=== PATIENT | female | born 1995 | race Caucasian/White ===

== ENCOUNTER 2016-09-10 07:17 | Emergency (ER) | payer OTHER ==
[2016-09-10 07:28] VITALS: BP 138/74
--- NOTE | 2016-09-10 07:50 | UC ---
Abdominal Pain Female HPI - HPI Summary HPI Summary: She states for the past year she has has been seeing GI regularly for intermittent cramping, sweats, distension. she has had issues with lack of BM and last BM this episode was 9 days ago. she has had some watery stools in the meantime. no wt loss, bleeding or fever. She does at times have night symptoms. she has been trying lynzess and mag citrate this past week without much help. she has not had much passage of sania. Currently no vomiting or nausea, bloating , pain. no complaints. - History of Current Complaint Chief Complaint: UCAbdominalPain Stated Complaint: CONSTIPATION Time Seen by Provider: 09/10/16 07:30 Hx Obtained From: Patient Hx Last Menstrual Period: mirena, does not get period ?: No Onset/Duration: Gradual Onset Severity Currently: None Location: Discrete At: LUQ Radiates: No Character: Cramping Aggravating Factor(s): Food Alleviating Factor(s): Nothing Associated Signs and Symptoms: Positive: Constipation, Decreased Appetite, Nausea - currently this morning she has no worrisome symptoms.. Negative: Fever , Cough, Chest Pain, Dizzy, Back Pain, Blood in Stool, Urinary Symptoms, Vaginal Bleeding, Vaginal Discharge, Vomiting, Diarrhea Allergies/Adverse Reactions: Allergies Allergy/AdvReac Type Severity Reaction Status Date / Time Amoxicillin Allergy Hives Verified 09/10/16 07:28 Home Medications: Home Medications Lactulose* 30 ml PO DAILY 09/10/16 [History Confirmed 09/10/16] Linaclotide (NF) [Linzess (NF)] 290 mcg PO DAILY 09/10/16 [History Confirmed ] PMH/Surg Hx/FS Hx/Imm Hx Endocrine History Of: Denies: Diabetes Cardiovascular History Of: Denies: Hypertension, Pacemaker/ICD GI/ History Of: Denies: Renal Disease - Surgical History Surgical History: Yes Surgery Procedure, Year, and Place: 2007 APPENDECTOMY [place]. 2011 [facility] - Family History Known Family History: Positive: None - no related gi disease. - Social History Occupation: Employed Full-time Alcohol Use: None Substance Use Type: None Smoking Status (MU): Never Smoked Tobacco Have You Smoked in the Last Year: No Review of Systems All Other Systems Reviewed And Are Negative: Yes Physical Exam Triage Information Reviewed: Yes Appearance: Well-Appearing - she is currently working here and is walking about easily without any signs of distress. Currently smiling at work station., No Pain Distress, Well-Nourished Vital Signs: Initial Vital Signs Temp 97.9 F 09/10/16 07:21 Pulse 67 09/10/16 07:21 Resp 15 09/10/16 07:21 BP 138/74 09/10/16 07:21 Pulse Ox 98 09/10/16 07:21 Vital Signs Reviewed: Yes Eyes: Positive: Conjunctiva Clear. Negative: Conjunctiva Inflamed ENT Exam: Normal Neck exam: Normal Neck: Positive: Supple, Nontender, No Lymphadenopathy Respiratory Exam: Normal Respiratory: Positive: Chest non-tender, Lungs clear, Normal breath sounds, No respiratory distress. Negative: No accessory muscle use, Respiratory distress, Decreased breath sounds, Accessory muscle use, Crackles, Rhonchi, Stridor, Wheezing Cardiovascular Exam: Normal Cardiovascular: Positive: RRR, No Murmur, Pulses Normal, Brisk Capillary Refill. Negative: Tachycardia Abdomen Description: Positive: No Organomegaly, Soft - she has no distension. There is tenderness LUQ and LLQ with deep palpation but no guarding or rebound.. Negative: CVA Tenderness (R), CVA Tenderness (L), Distended, Guarding , Peritoneal Signs Bowel Sounds: Positive: Present Musculoskeletal Exam: Normal Musculoskeletal: Positive: Strength Intact, ROM Intact, No Edema Neurological Exam: Normal Neurological: Positive: Alert, Muscle Tone Normal. Negative: Fatigued, Lethargic, Unresponsive Psychological Exam: Normal Skin Exam: Normal Skin: Negative: rashes Abd Pain Female Course/Dx - Course Course Of Treatment: She has been seeing GI. She is scheduled for colonoscvopy. her next appt with gi is next week. currently she has no worrisome symptoms and her exam is benign. She has had blood work with GI which at least included thyroid studies. differential includes functional constipation, illeus, inflammatory bowel. She will return for any worsening. - Differential Dx/Diagnosis Differential Diagnosis: Abdominal Aortic Aneurysm, ACS, Bowel Obstruction, Constipation, Diverticulitis, Ectopic , Irritable Bowel Syndrome, Ovarian Cyst, Pelvic Inflammatory Disease, Peptic Ulcer Disease, , Urinary Tract Infection Provider Diagnoses: abd cramping. Discharge - Discharge Plan Condition: Good Disposition: HOME Patient Education Materials: Constipation (ED), High Fiber Diet (ED) Additional Instructions: continue to follow up with GI as we discussed. REturn for any worsening or new symptoms.
--- NOTE | 2016-09-10 08:03 | RAD ---
HISTORY: No bowel movement for 9 days COMPARISONS: October 17, 2015 VIEWS: Frontal views of the abdomen. FINDINGS: BOWEL: There is a nonspecific bowel gas pattern, with nondilated small bowel gas noted. There is a moderate amount of stool within the colon. CALCULI: There are no abnormal calculi. BONES AND SOFT TISSUES: There are no osseous abnormalities. OTHER FINDINGS: The lung bases are clear. There is no subphrenic gas. An IUD is noted. IMPRESSION: NONSPECIFIC BOWEL GAS PATTERN.
== END 2016-09-10 08:11 | disposition home or self-care (01) ==
LOC: UCCORT 07:17
DX: R10.12 Left upper quadrant pain (principal); R14.0 Abdominal distension (gaseous); Z88.1 Allergy status to other antibiotic agents; Z32.02 Encounter for pregnancy test, result negative
CPT/HCPCS: 74000; 81003; 84702; 99211; G0463

== ENCOUNTER 2017-10-07 21:22 | Emergency (ER) | payer BC ==
[2017-10-07 22:32] LABS: ABS Basophils 0.1 10^3/ul (0-0.2); ABS Eosinophils 0.1 10^3/ul (0-0.6); ABS Lymphocytes 2.4 10^3/ul (1.0-4.8); ABS Monocytes 0.7 10^3/ul (0-0.8); ABS Neutrophils 9.9 10^3/ul (1.5-7.7); ABS Nucleated RBC 0 10^3/ul; Eosinophil % 0.7 % (0-6); Hematocrit 38 % (35-47); Hemoglobin 12.5 g/dl (12.0-16.0); Mean Corpuscular HGB Conc 33 g/dl (31-36); Mean Corpuscular Hemoglobin 27 pg (27-31); Mean Corpuscular Volume 82 fL (80-97); Mean Platelet Volume 7.1 um3 (7.4-10.4); Nucleated Red Blood Cells % 0; Platelet Count 289 10^3/ul (150-450); Red Blood Count 4.59 10^6/ul (4.0-5.4); Red Cell Distribution Width 13 % (10.5-15); White Blood Count 13.2 10^3/ul (3.5-10.8)
[2017-10-07 22:53] LABS: EGFR Non-African American 110.1 (>60)
[2017-10-07] MEDS ORDERED: Lidocaine 2% VISCOUS* 15 ML UDC PO ONE (22:53)
[2017-10-07] MEDS ORDERED: Famotidine TAB* 20 MG PO ONE (22:53)
[2017-10-07] MEDS ORDERED: Al Hydrox/Mg Hydrox/Simet LIQ* 30 ML UDC PO ONE (22:53)
[2017-10-07 23:20] LABS: Urine Appearance Clear; Urine Blood Negative (Negative); Urine Color Yellow; Urine Ketones Negative (Negative); Urine Protein Negative (Negative); Urine Specific Gravity 1.013 (1.010-1.030); Urine Urobilinogen Negative (Negative)
--- NOTE | 2017-10-07 23:56 | ED ---
Nikhil Carter Jennifer, scribed for Jarek May MD on 10/07/17 at 2242 . Abdominal Pain/Female - HPI Summary HPI Summary: The patient is a 21 year old female who presents with sudden onset left-sided abdominal pain and vomiting today. She describes it as the most excruciating stomach pain and that it was like a twisting knife in her stomach. Patient adds she felt like she was about to pass out when she began vomiting. Patient denies fever, hematuria, dysuria, urgency, and frequency. Her abdominal pain is still present in the ED. - History of Current Complaint Chief Complaint: EDAbdPain Stated Complaint: SYNCOPE/ABD PAIN Time Seen by Provider: 10/07/17 22:33 Hx Obtained From: Patient Hx Last Menstrual Period: mirena, does not get period ?: No Onset/Duration: Sudden Onset, Lasting Days - couple days, Still Present, Worse Since - this morning Timing: Constant Severity Initially: Severe Severity Currently: Moderate Pain Intensity: 6 Pain Scale Used: 0-10 Numeric Location: Discrete At: LUQ, Discrete At: LLQ Radiates: No Character: Sharp - sharp/stabbing Aggravating Factor(s): Nothing Alleviating Factor(s): Nothing Associated Signs and Symptoms: Positive: Other: - abdominal pain, vomiting. NEGATIVE: fever, hamrutia, dysuria, urgency, frequency Allergies/Adverse Reactions: Allergies Allergy/AdvReac Type Severity Reaction Status Date / Time amoxicillin Allergy Hives Verified 10/07/17 21:37 Home Medications: Home Medications Miralax 17 gm PO DAILY 10/07/17 [History Confirmed 10/07/17] PMH/Surg Hx/FS Hx/Imm Hx Endocrine/Hematology History: Denies: Hx Diabetes Cardiovascular History: Denies: Hx Hypertension, Hx Pacemaker/ICD GI History: Reports: Hx Irritable Bowel - Hx IBSC History: Denies: Hx Renal Disease Sensory History: Reports: Hx Contacts or Glasses - WILL WEAR GLASSES DAY OF SURGERY Denies: Hx Hearing Aid Opthamlomology History: Reports: Hx Contacts or Glasses - WILL WEAR GLASSES DAY OF SURGERY Psychiatric History: Denies: Hx Panic Disorder - Surgical History Surgery Procedure, Year, and Place: 2007 APPENDECTOMY [place]. 2011 [facility] Hx Anesthesia Reactions: No Infectious Disease History: No Infectious Disease History: Denies: Traveled Outside the [place] in Last 30 Days - Family History Known Family History: Positive: Other - no related gi disease. Negative: Hypertension, Diabetes - Social History Alcohol Use: None Hx Substance Use: No Substance Use Type: Reports: None Hx Tobacco Use: No Smoking Status (MU): Never Smoked Tobacco Have You Smoked in the Last Year: No Review of Systems Negative: Fever Positive: Abdominal Pain, Vomiting Negative: dysuria, frequency, hematuria, urgency All Other Systems Reviewed And Are Negative: Yes Physical Exam - Summary Physical Exam Summary: Appearance: Well appearing, no pain distress Skin: warm, dry, reflects adequate perfusion Head/face: normal Eyes: EOMI, MEGAN ENT: normal Neck: supple, non-tender Respiratory: CTA, breath sounds present Cardiovascular: RRR, pulses symmetrical Abdomen: mild tenderness in LUQ, soft, no rebounding or guarding Bowel Sounds: present Musculoskeletal: normal, strength/ROM intact Neuro: normal, sensory motor intact, A&Ox3 Triage Information Reviewed: Yes Vital Signs On Initial Exam: Initial Vitals Temp Pulse Resp BP Pulse Ox 96.7 F 90 16 146/99 99 10/07/17 21:35 10/07/17 21:35 10/07/17 21:35 10/07/17 21:35 10/07/17 21:35 Vital Signs Reviewed: Yes Diagnostics - Vital Signs Vital Signs Temp Pulse Resp BP Pulse Ox 10/07/17 21:47 105 22 100 10/07/17 21:45 103 17 132/87 99 10/07/17 21:35 96.7 F 90 16 146/99 99 - Laboratory Lab Results: Lab Results 10/07/17 Range/Units 22:24 WBC 13.2 H (3.5-10.8) 10^3/ul RBC 4.59 (4.0-5.4) 10^6/ul Hgb 12.5 (12.0-16.0) g/dl Hct 38 (35-47) % MCV 82 (80-97) fL MCH 27 (27-31) pg MCHC 33 (31-36) g/dl RDW 13 (10.5-15) % Plt Count 289 (150-450) 10^3/ul MPV 7.1 L (7.4-10.4) um3 Neut % (Auto) 75.1 (38-83) % Lymph % (Auto) 18.0 L (25-47) % Towner % (Auto) 5.7 (0-7) % Eos % (Auto) 0.7 (0-6) % Baso % (Auto) 0.5 (0-2) % Absolute Neuts (auto) 9.9 H (1.5-7.7) 10^3/ul Absolute Lymphs (auto) 2.4 (1.0-4.8) 10^3/ul Absolute Monos (auto) 0.7 (0-0.8) 10^3/ul Absolute Eos (auto) 0.1 (0-0.6) 10^3/ul Absolute Basos (auto) 0.1 (0-0.2) 10^3/ul Absolute Nucleated RBC 0 10^3/ul Nucleated RBC % 0 Result Diagrams: 10/07/17 22:24 10/07/17 22:24 Lab Statement: Any lab studies that have been ordered have been reviewed, and results considered in the medical decision making process. - Radiology Abdominal XR Xray Interpretation: No Acute Changes - Shows non-obstructive bowel pattern. Radiology Interpretation Completed By: ED Physician Re-Evaluation - Re-Evaluation First Eval Re-Evaluation Time: 23:31 Change: Improved Comment: Patient reports feeling much better. Abdominal Pain Fem Course/Dx - Course Course Of Treatment: Patient with a history of irritable bowel constipation type with left upper quadrant pain that is fairly constant in nature. Laboratories are nonrevealing. X-ray shows nonobstructive pattern. She had full relief of symptoms after GI treatments with Maalox, viscous lidocaine and Pepcid. I will continue similar treatment along with PPI outpatient. She'll follow-up with her GI doctor. - Diagnoses Differential Diagnosis: Positive: Constipation, Diverticulitis, Ectopic , Irritable Bowel Syndrome, Ovarian Cyst, Pancreatitis, Peptic Ulcer Disease, Other - Gastritis Provider Diagnoses: Gastritis, LUQ abdominal pain Discharge - Sign-Out/Discharge Documenting (check all that apply): Discharge/Admit/Transfer - Discharge Plan Condition: Good Disposition: HOME Prescriptions: Famotidine TAB* [Pepcid 20 MG TAB*] 20 mg PO BID #10 tab Omeprazole CAP* [Prilosec CAP* 20 MG] 20 mg PO BEDTIME #30 cap. Sucralfate [Carafate] 1 gm PO QID #40 tablet Patient Education Materials: Gastritis (ED), Abdominal Pain (ED) Forms: *Work Release Referrals: Julieth Mackenzie MD [Primary Care Provider] - Additional Instructions: Follow-up with Dr. Goss at [place]. Avoid anti-inflammatory medications alcohol and caffeine. Return if worse, new symptoms or other concerns. - Billing Disposition and Condition Condition: STABLE Disposition: HOME The documentation as recorded by the Nikhil johnson Jennifer accurately reflects the service I personally performed and the decisions made by , Jarek May MD.
[2017-10-08 00:08] VITALS: BP 116/74
--- NOTE | 2017-10-08 07:41 | RAD ---
HISTORY: Abdominal pain, rule out obstruction COMPARISONS: September 10, 2016 VIEWS: Frontal supine and upright views of the abdomen. FINDINGS: BOWEL: There is a nonobstructive bowel gas pattern. There is a large amount of stool within the mid and distal colon. CALCULI: There are no abnormal calculi. BONES AND SOFT TISSUES: There are no osseous abnormalities. An IUD is noted. OTHER FINDINGS: The lung bases are clear. There is no subphrenic gas. IMPRESSION: NONOBSTRUCTIVE BOWEL GAS PATTERN.
== END 2017-10-08 00:07 | disposition home or self-care (01) ==
LOC: ED 21:22
DX: K29.70 Gastritis, unspecified, without bleeding (principal); R10.12 Left upper quadrant pain; R11.10 Vomiting, unspecified
CPT/HCPCS: 36415; 74019; 80053; 81003; 83605; 83690; 84702; 85025; 86140; 99283; A9270-GY

== ENCOUNTER → 2018-01-29 06:44 | Day surgery (SDC) | payer BC ==
[~2018-01-29 06:44] MED LIST: Acetaminophen TAB* 325 MG ONE; Acetaminophen TAB* 325 MG PO ONE; Buffered Lidocaine 0.9% SYRIN* 5 ML/SYR SYRINGE INTRADERM ONE; Dexamethasone IV* 4 MG/ML 1 ML (4 MG) ONE; DiMENhydriNATE IV* 50 MG/ML VIAL IV PUSH PRN; DiMENhydriNATE IV* 50 MG/ML VIAL ONE; Famotidine IV* 10 MG/ML 2 ML (20 mg) ONE; HYDROcodone/ACETAMIN 5-325 MG* 1 TAB PO PRN; Ketorolac INJ* 30 MG/ML 1 ML VIAL ONE; Lidocaine 2% PF * 5 ML VIAL ONE; Midazolam* 1 MG/ML 2 ML VIAL (2 MG) ONE; Nalbuphine* 10 MG/ML 1 ML VIAL IV PRN; Naloxone* 0.4 MG/ML 1 ML VIAL IV PRN; Ondansetron INJ* 2 MG/ML VIAL IV PRN; PROCHLORPERAZINE INJ 5 MG/ML 2 ML VIAL IV PRN; Propofol* 10 MG/ML 20 ML BTL IV PUSH ONE; Scopolamine 1.5 mg* PATCH TRANSDERM PRN; Scopolamine PATCH Remove* 1 NOTE MISC PATCH OFF ONE; fentaNYL* 50 MCG/ML 2 ML VIAL (100 MCG VIAL) IV PRN; fentaNYL* 50 MCG/ML 2 ML VIAL (100 MCG VIAL) ONE
[2018-01-29 08:49] LABS: Hematocrit 38 % (35-47); Hemoglobin 12.6 g/dl (12.0-16.0); Mean Corpuscular HGB Conc 34 g/dl (31-36); Mean Corpuscular Hemoglobin 28 pg (27-31); Mean Corpuscular Volume 82 fL (80-97); Mean Platelet Volume 7.3 um3 (7.4-10.4); Platelet Count 314 10^3/ul (150-450); Red Blood Count 4.57 10^6/ul (4.00-5.40); Red Cell Distribution Width 13 % (10.5-15); White Blood Count 8.7 10^3/ul (3.5-10.8)
[2018-01-29 10:43] VITALS: BP 144/96
--- NOTE | 2018-01-30 08:00 | OP ---
DATE OF OPERATION: 01/29/18 [facility] DATE OF : [birth year]. SURGEON: Klaus Kendall MD. ANESTHESIOLOGIST: Dr. Carr. ANESTHESIA: General endotracheal. PRE-OP DIAGNOSIS: Post-coital bleeding. POST-OP DIAGNOSES: Post-coital bleeding and endometrial polyp. OPERATIVE PROCEDURE: IUD removal, hysteroscopy, D and C and MyoSure polypectomy. ESTIMATED BLOOD LOSS: Minimal. URINE OUTPUT: 200 cc. IV FLUIDS: 1400 cc of lactated Ringer's. Hysteroscopic deficit minimal saline. MATERIAL TO LAB: Endometrial curettings and polyp fragments. INDICATIONS: This patient was as 22-year-old, 0, who presented with complaint of persistent post-coital bleeding. The patient does have a levonorgestrel IUD in place and ultrasound was unremarkable. Considering the persistent bleeding and lack of any visible cervical abnormalities, the patient desired to have further evaluation performed. She was counseled and consented for IUD removal with hysteroscopic evaluation, D&C and possible polypectomy if indicated. FINDINGS: Uterine cavity consistent with IUD with atrophic endometrium. Lower uterine segment with multiple small polyps present. COMPLICATIONS: None. DESCRIPTION OF PROCEDURE: The risks, benefits and alternatives were described to the patient and informed consent was obtained. The patient was taken to the operating room with IV running, where general anesthesia was induced and found to be adequate. The patient was prepped and draped in a normal sterile fashion in the high lithotomy position in Johnson stirrups. A time-out was performed. The bladder was emptied. A bivalve speculum was placed in the vagina and a single-tooth tenaculum was placed on the anterior cervix. The patient's IUD strings were easily visualized. Polyp forceps were used to grasp the strings and an intact IUD was removed without difficulty. This was discarded. The cervix was then gently dilated using Hanks dilators to maximum size of 26. At that time, a MyoSure hysteroscope was advanced through the cervix and into the uterine cavity without difficulty. Saline was managed with the Aquilex fluid management system. Due to poor visualization and leakage of one of the valves, the MyoSure scope had to be changed out. Once the second scope had been prepared, it was placed into the uterine cavity, this time with good visualization. The findings are noted above. A MyoSure light device was then prepared and used to fully remove the polyps that had been visualized in the lower uterine segment. Bleeding was very light at that time. At that time, the endometrial cavity was completely normal in appearance. The hysteroscope was removed. A gentle curettage of the endometrium was then performed using a medium Banjo curette and this was collected on Telfa. The tenaculum was then removed and there was good hemostasis. The speculum was removed and the patient was returned to the supine position. The patient tolerated the procedure well. Sponge, lap and needle counts were correct x2. [id number]/[facility] #: [id number] MTDD
== END | disposition home or self-care (01) ==
LOC: OR 06:44
PROVIDERS: ATTEND Obstetrics & Gynecology
DX: N93.0 Postcoital and contact bleeding (principal); N84.0 Polyp of corpus uteri; N80.9 Endometriosis, unspecified; F41.8 Other specified anxiety disorders; R10.9 Unspecified abdominal pain; N94.9 Unspecified condition associated with female genital organs and menstrual cycle
CPT/HCPCS: 36415; 81025; 85027; 88305; A9270-GY; J1100; J1240; J1885; J2250; J2704; J3010

== ENCOUNTER 2018-12-15 10:26 | Emergency (ER) | payer BC ==
--- NOTE | 2018-12-15 12:18 | ED ---
Abdominal Pain/Female - HPI Summary HPI Summary: The pt is a 23 yr old female presenting to [facility] c/o LUQ abd pain beginning yesterday. She states that the pain came with sudden onset and felt like being hit with a baseball bat to her LUQ. The pain then stayed with her the whole day but was intermittently worsening. She describes the pain as stabbing, rates its severity an 8/10, and mentions that it radiates to her back and left flank but not downwards. Lying down aggravates the pain. She also reports loss of appetite but denies any N/V/D or dysuria. She has Hx of appendectomy. - History of Current Complaint Chief Complaint: EDAbdPain Stated Complaint: UPPER LEFT SIDE ABD PAIN/SPOTTING BLOOD PER PT Time Seen by Provider: 12/15/18 12:03 Hx Obtained From: Patient Hx Last Menstrual Period: mirena, does not get period Onset/Duration: Sudden Onset, Lasting Days, Still Present Timing: Hours Severity Initially: Moderate Severity Currently: Severe Pain Intensity: 8 Pain Scale Used: 0-10 Numeric Location: Discrete At: LUQ Radiates: Yes Radiates to: Back, Flank - left Aggravating Factor(s): Other: - lying down Alleviating Factor(s): Nothing Associated Signs and Symptoms: Positive: Decreased Appetite, Other: - Negative - dysuria. Negative: Nausea, Vomiting, Diarrhea Allergies/Adverse Reactions: Allergies Allergy/AdvReac Type Severity Reaction Status Date / Time amoxicillin Allergy Hives Verified 12/15/18 10:31 PMH/Surg Hx/FS Hx/Imm Hx Endocrine/Hematology History: Denies: Hx Diabetes Cardiovascular History: Denies: Hx Hypertension, Hx Pacemaker/ICD GI History: Reports: Hx Irritable Bowel - Hx IBS History: Denies: Hx Renal Disease Sensory History: Reports: Hx Contacts or Glasses - WILL WEAR GLASSES DAY OF SURGERY Denies: Hx Hearing Aid Opthamlomology History: Reports: Hx Contacts or Glasses - WILL WEAR GLASSES DAY OF SURGERY Psychiatric History: Denies: Hx Panic Disorder - Surgical History Surgery Procedure, Year, and Place: 2007 APPENDECTOMY [place]. 2012 [place] [place]. WISDOM TEETH EXTRACTED -5 YEARS AGO Hx Anesthesia Reactions: No Infectious Disease History: No Infectious Disease History: Denies: Traveled Outside the [place] in Last 30 Days - Family History Known Family History: Positive: Other - no related gi disease. Negative: Hypertension, Diabetes - Social History Alcohol Use: None Hx Substance Use: No Substance Use Type: Reports: None Hx Tobacco Use: No Smoking Status (MU): Never Smoked Tobacco Have You Smoked in the Last Year: No Review of Systems Positive: Other Positive: Abdominal Pain - LUQ, radiates to back and left flank. Negative: Vomiting, Diarrhea, Nausea Negative: dysuria All Other Systems Reviewed And Are Negative: Yes Physical Exam - Summary Physical Exam Summary: Appearance: Well-appearing, Well-nourished, lying in bed comfortably Skin: Warm, dry, no obvious rash Eyes: sclera anicteric, no conjunctival pallor ENT: mucous membranes moist, pharynx appears normal Neck: Supple, nontender Respiratory: Clear to auscultation, no signs of respiratory distress Cardiovascular: Mild tachycardia, Normal S1, S2. No murmurs. Normal distal pulses in tibial and radial bilaterally. Abdomen: Soft, general abd tenderness that is more pronounced on the left side, no rebound, no guarding, normal active bowel sounds present Musculoskeletal: Normal, Strength/ROM Intact Neurological: A&Ox3, awake and alert, mentation is normal, speech is fluent and appropriate Psychiatric: affect is normal, does not appear anxious or depressed Triage Information Reviewed: Yes Vital Signs On Initial Exam: Initial Vitals Temp Pulse Resp BP Pulse Ox 98.5 F 108 16 144/106 99 12/15/18 10:29 12/15/18 10:29 12/15/18 10:29 12/15/18 10:29 12/15/18 10:29 Vital Signs Reviewed: Yes Diagnostics - Vital Signs Vital Signs Temp Pulse Resp BP Pulse Ox 12/15/18 10:29 98.5 F 108 16 144/106 99 - Laboratory Result Diagrams: 12/15/18 12:35 12/15/18 12:35 Lab Statement: Any lab studies that have been ordered have been reviewed, and results considered in the medical decision making process. - Ultrasound US Renal Ultrasound Interpretation Completed By: Radiologist Summary of Ultrasound Findings: IMPRESSION: NO LEFT HYDRONEPHROSIS OR NEPHROLITHIASIS. ED Physician has reviewed this report. Re-Evaluation - Re-Evaluation Second Eval Re-Evaluation Time: 13:47 Comment: lab results and discharge discussed with pt Abdominal Pain Fem Course/Dx - Course Course Of Treatment: The pt is a 23 yr old female presenting to [facility] c/o LUQ abd pain beginning yesterday. She states that the pain came with sudden onset and felt like being hit with a baseball bat to her LUQ. The pain then stayed with her the whole day but was intermittently worsening. She describes the pain as stabbing, rates its severity an 8/10, and mentions that it radiates to her back and left flank but not downwards. Lying down aggravates the pain. She also reports loss of appetite but denies any N/V/D or dysuria. She has Hx of appendectomy. The physical exam was only notable for general abd tenderness that is more pronounced on the left side without rebound or guarding. Test results normal except for MPV @ 7.1, Ur Specific [place] @ 1.008, 1+ Ur Blood, Ur squamous epith cells present. A renal US reveals: NO LEFT HYDRONEPHROSIS OR NEPHROLITHIASIS. The pt was diagnosed with abdominal pain, discharged home, and instructed to follow up with PCP within 3 days. The pt is stable and agreeable with this plan. - Diagnoses Provider Diagnoses: Abdominal pain Discharge - Sign-Out/Discharge Documenting (check all that apply): Patient Departure - discharge Patient Received Moderate/Deep Sedation with Procedure: No - Discharge Plan Condition: Good Disposition: HOME Patient Education Materials: Irritable Bowel Syndrome (ED), Acute Abdominal Pain (ED) Referrals: Julieth Mackenzie MD [Primary Care Provider] - 3 Days Additional Instructions: Followup with the seaming inspector as scheduled. If your pain is getting worse as we get to the end of the week and weekend we should see you back here. - Billing Disposition and Condition Condition: GOOD Disposition: Home - Attestation Statements Document Initiated by Tracey: Yes Documenting Scribe: Eduardo Peres Provider For Whom Tracey is Documenting (Include Credential): Cesar Rios MD Scribfrancisco Attestation: Eduardo Carter, scribed for Cesar Rios MD on 12/17/18 at 0439. Scribe Documentation Reviewed: Yes Provider Attestation: The documentation as recorded by the Eduardo johnson accurately reflects the service I personally performed and the decisions made by me, Cesar Rios MD Status of Scribe Document: Viewed
[2018-12-15 12:41] LABS: ABS Basophils 0.1 10^3/ul (0-0.2); ABS Eosinophils 0.2 10^3/ul (0-0.6); ABS Lymphocytes 2.8 10^3/ul (1.0-4.8); ABS Monocytes 0.6 10^3/ul (0-0.8); ABS Neutrophils 6.8 10^3/ul (1.5-7.7); Eosinophil % 1.8 %; Hematocrit 39 % (35-47); Hemoglobin 13.2 g/dL (12.0-16.0); Lymphocyte % 26.7 %; Mean Corpuscular HGB Conc 34 g/dL (31-36); Mean Corpuscular Hemoglobin 27 pg (27-31); Mean Corpuscular Volume 81 fL (80-97); Mean Platelet Volume 7.1 fL (7.4-10.4); Platelet Count 367 10^3/uL (150-450); Red Blood Count 4.85 10^6 /uL (3.70-4.87); Red Cell Distribution Width 13 % (10-15); White Blood Count 10.6 10^3/uL (3.5-10.8)
[2018-12-15 13:05] LABS: Albumin 4.7 g/dL (3.2-5.2); Albumin/Globulin Ratio 1.4 (1-3); BUN/Creatinine Ratio 15.4 (8-20); Calcium 9.8 mg/dL (8.6-10.3); EGFR African American 135.5 (>60); Globulin 3.4 g/dL (2-4); Potassium 4.2 mmol/L (3.5-5.0); Total Bilirubin 0.3 mg/dL (0.2-1.0); Total Protein 8.1 g/dL (6.4-8.9)
[2018-12-15 13:12] LABS: Urine Appearance Clear; Urine Bacteria Absent (Absent); Urine Bilirubin Negative (Negative); Urine Blood 1+ (Negative); Urine Color Straw; Urine Glucose Negative (Negative); Urine Ketones Negative (Negative); Urine Nitrite Negative (Negative); Urine Protein Negative (Negative); Urine Red Blood Cell Trace(0-2/hpf) (Absent); Urine Specific Gravity 1.008 (1.010-1.030); Urine Squamous Epithelial Cell Present (Absent); Urine Urobilinogen Negative (Negative); Urine White Blood Cell Trace(0-5/hpf) (Absent)
[2018-12-15 14:18] VITALS: BP 134/105
== END 2018-12-15 14:17 | disposition home or self-care (01) ==
LOC: ED 10:26
DX: R10.9 Unspecified abdominal pain (principal); Z88.0 Allergy status to penicillin
CPT/HCPCS: 36415; 76775; 80053; 81003; 81015; 85025; 87086; 99283